=== PATIENT | female | born 1955 ===

== ENCOUNTER 2019-03-10 10:23 | Outpatient (REF) | payer SELFPAY ==
[2019-03-10 21:26] LABS: Abs Immature Grans 0.05 k/cumm (0.0-0.09); Absolute Basophil Count 0.03 k/cumm (0.0-0.2); Absolute Lymphocyte Count 3.84 k/cumm (1.2-3.4); Absolute Monocyte Count 0.87 k/cumm (0.11-0.7); Absolute Neutrophil Count 9.07 k/cumm (1.2-6.7); Basophils % 0.2; Eosinophils % 1.4; HCT 48.6 % (36.0-46.0); HGB 16.1 g/dL (12.0-15.5); Immature Grans % 0.4; Lymphocytes % 27.3; Mean Corp. HGB Concentration 33.1 g/dL (32.0-36.0); Mean Corpuscular Hemoglobin 31.2 pg (27.0-33.0); Mean Corpuscular Volume 94.2 fL (80-95); Mean Platelet Volume 12.6 fL (8.0-11.0); Monocytes % 6.2; Neutrophils % 64.5; Platelet Count 267 x1000/uL (130-400); RBC 5.16 m/cumm (4.00-5.20); RBC Distribution Width 14.5 % (11.7-14.6); White Blood Cell Count 14.06 k/cumm (4.4-10.8)
[2019-03-10 21:46] LABS: ALT 19 U/L (12-78); AST 13 U/L (15-37); Albumin 3.7 g/dL (3.4-5.0); Alkaline Phosphatase 86 U/L (46-116); Anion Gap 11.6 mmol/L (3-11); BUN 21 mg/dL (7-18); Bilirubin, Total 0.3 mg/dL (0.2-1.0); CO2 24.4 mmol/L (21.0-32.0); CREATININE 0.82 mg/dL (0.55-1.02); Calculated LDL 239 mg/dL; Chloride 105 mmol/L (98-107); Cholesterol 307 mg/dL (50-200); Glucose 96 mg/dL (70-100); HDL Cholesterol 37 mg/dL (40-60); Potassium 4.5 mmol/L (3.5-5.1); Sodium 141 mmol/L (136-145); Total Protein 7.1 g/dL (6.4-8.2); Triglyceride 155 mg/dL (30-150)
[2019-03-10 21:53] LABS: C-Reactive Protein 0.42 mg/dL (0.0-0.3)
[2019-03-10 22:31] LABS: ESR 14 mm/hr (0-30)
== END 2019-03-10 10:43 ==
LOC: NCHCN 10:23
PROVIDERS: PCP Nurse Practitioner Family; Visit Provider Registered Nurse
DX: R23.0 Cyanosis (principal); M79.605 Pain in left leg
CPT/HCPCS: 80053; 80061; 83721; 85652; 85025; 86140

== ENCOUNTER 2020-12-01 22:55 | Outpatient (REF) | payer MEDICARE, SELFPAY ==
[2020-12-01 22:35] LABS: ALT 26 U/L (14-59); AST 13 U/L (15-37); Albumin 3.8 g/dL (3.4-5.0); Alkaline Phosphatase 79 U/L (46-116); Anion Gap 10.5 mmol/L (3-11); BUN 12 mg/dL (7-18); Bilirubin, Total 0.4 mg/dL (0.2-1.0); CO2 24.5 mmol/L (21.0-32.0); CREATININE 0.9 mg/dL (0.55-1.02); Calcium 9.5 mg/dL (8.5-10.1); Calculated LDL 91 mg/dL (<100); Chloride 107 mmol/L (98-107); Cholesterol 155 mg/dL (<200); Glucose 86 mg/dL (74-106); HDL Cholesterol 41 mg/dL (40-60); Potassium 4.7 mmol/L (3.5-5.1); Sodium 142 mmol/L (136-145); TSH 2.49 uIU/mL (0.36-3.74); Total Protein 7.1 g/dL (6.4-8.2); Triglyceride 117 mg/dL (<150)
== END 2020-12-01 22:56 | disposition home or self-care (01) ==
LOC: NCHCN 22:55
PROVIDERS: PCP Nurse Practitioner Family; Visit Provider Family Medicine
DX: R53.83 Other fatigue (principal); I73.9 Peripheral vascular disease, unspecified; Z28.3 Underimmunization status; R79.89 Other specified abnormal findings of blood chemistry
CPT/HCPCS: 80053; 80061; 84443

== ENCOUNTER 2021-04-04 20:23 | Outpatient (REF) | payer MEDICARE, SELFPAY ==
[2021-04-04 20:50] LABS: Abs Immature Grans 0.04 10^3/uL (0.0-0.06); Absolute Basophil Count 0.06 10^3/uL (0.0-0.2); Absolute Eosinophil Count 0.09 10^3/uL (0.0-0.7); Absolute Monocyte Count 0.61 10^3/uL (0.1-0.8); Basophils % 0.5; Eosinophils % 0.7; HCT 47.2 % (36.0-46.0); HGB 15.3 g/dL (11.2-15.7); Immature Grans % 0.3; Lymphocytes % 27.9; MCH 31.3 pg (27.0-33.0); MCHC 32.4 % (32.0-36.0); MCV 96.5 fL (80-95); MPV 12.4 fL (8.0-11.0); Neutrophils % 65.6; Nucleated RBC 0 %; Platelet Count 241 10^3/uL (130-400); RBC 4.89 10^6/uL (3.93-5.22); RDW 13.2 % (11.7-14.6)
[2021-04-04 21:03] LABS: C-Reactive Protein 0.49 mg/dL (0.0-0.3)
[2021-04-06 10:19] LABS: Lyme Ab w Rflx to Lyme Confirm Negative (Negative)
== END 2021-04-04 20:24 | disposition home or self-care (01) ==
LOC: NCHCN 20:23
PROVIDERS: PCP Nurse Practitioner Family; Visit Provider Family Medicine
DX: R53.83 Other fatigue (principal)
CPT/HCPCS: 85025; 86140; 86618